=== PATIENT | male | born 1945 | race Caucasian/White ===

== ENCOUNTER → 2018-05-27 12:04 | Outpatient (CLI) | payer OTHER, MEDICARE, SELFPAY ==
--- NOTE | 2018-05-27 | DI.RAD.S_ITS ---
PROCEDURE: XR STERNUM MIN 2V INDICATIONS: STERNAL PAIN TECHNIQUE: 2 views of the sternum acquired. COMPARISON: None. FINDINGS: Bones: No fractures or dislocations. No suspicious bony lesions. Soft tissues: Retrosternal soft tissues appear normal. IMPRESSION: Normal for age, source of current symptoms is not seen. Dictated by: Saturnino Jimenez M.D. on 05/27/2018 at 14:23 Approved by: Saturnino Jimenez M.D. on 05/27/2018 at 14:23
== END ==
PROVIDERS: PCP Family Medicine; Visit Provider Chiropractor
DX: R07.9 Chest pain, unspecified (principal)
CPT/HCPCS: 71120

== ENCOUNTER → 2018-07-28 16:29 | Outpatient (CLI) | payer MEDICARE, SELFPAY ==
[2018-07-28 16:48] LABS: Hematocrit 48.7 % (41-53); Hemoglobin 16.5 g/dL (13.5-17.5); Mean Corpuscular HGB Conc 33.8 % (30-36); Mean Corpuscular Hemoglobin 29.9 PG (26-34); Mean Corpuscular Volume 88.5 fL (80-100); Platelet Count 273 X10^3/uL (150-400); Red Blood Cell Count 5.51 X10^6/uL (4.5-5.9); Red Cell Distribution Width 14.5 % (11.6-14.8); White Blood Cell Count 7.1 X10^3/uL (4.5-11.0)
[2018-07-28 17:37] LABS: Cholesterol 236 mg/dL (140-199); HDL Cholesterol 56 mg/dL (40-60); LDL Cholesterol Calculated 165 mg/dL (<100); Triglycerides 77 mg/dL (35-150)
[2018-07-28 17:54] LABS: Vitamin D 25 Hydroxy (D3) 24.5 ng/mL (30.0-100.0)
[2018-07-28 18:09] LABS: Prostate Specific Antigen Scrn 4.88 ng/mL (0.1-4.0)
[2018-08-04 13:35] LABS: Testosterone Free 21.8
[2018-08-04 13:36] LABS: Testosterone Total 184
== END ==
PROVIDERS: PCP Student in an Organized Health Care Education/Training Program; Visit Provider Student in an Organized Health Care Education/Training Program
DX: E29.1 Testicular hypofunction (principal); E55.9 Vitamin D deficiency, unspecified; E78.2 Mixed hyperlipidemia; R39.15 Urgency of urination; Z12.5 Encounter for screening for malignant neoplasm of prostate
CPT/HCPCS: 36415; 80061; 82306; 84402; 84403; 85027; G0103

== ENCOUNTER → 2018-10-04 07:34 | Outpatient (CLI) | payer MEDICARE, SELFPAY ==
[2018-10-04 09:47] LABS: Prostate Specific Antigen 6.27 ng/mL (0.10-4.00)
== END ==
PROVIDERS: PCP Student in an Organized Health Care Education/Training Program; Visit Provider Student in an Organized Health Care Education/Training Program
DX: R97.20 Elevated prostate specific antigen [PSA] (principal)
CPT/HCPCS: 36415; 84153

== ENCOUNTER → 2018-11-30 07:01 | Outpatient (CLI) | payer MEDICARE, SELFPAY ==
[2018-12-02 15:08] LABS: PSA Free % 14 % (calc) (> 25); PSA, Total 2.9 ng/mL (< 4.1)
[2018-12-04 00:10] LABS: Testosterone Total 301 ng/dL (250-1100)
== END ==
PROVIDERS: PCP Student in an Organized Health Care Education/Training Program; Visit Provider Urology
DX: E29.1 Testicular hypofunction (principal); R97.20 Elevated prostate specific antigen [PSA]
CPT/HCPCS: 36415; 84153; 84154; 84402; 84403

== ENCOUNTER → 2019-03-28 07:23 | Outpatient (CLI) | payer MEDICARE, SELFPAY ==
[2019-03-28 08:42] LABS: Alanine Aminotransferase 18 IU/L (21-72); Albumin Globulin Ratio 1.3 (1.0-2.8); Alkaline Phosphatase 71 U/L (38-126); Aspartate Aminotransferase 22 IU/L (17-59); Bilirubin Total 0.7 mg/dL (0.2-1.3); Bilirubin Unconjugated 0.6 mg/dL (0.0-1.1); Cholesterol 216 mg/dL (140-199); Globulin 3.1 g/dL (1.7-4.1); HDL Cholesterol 39 mg/dL (40-60); HEMOLYSIS < 15 (0-50); LDL Cholesterol Calculated 156 mg/dL (<100); Total Protein 7.1 g/dL (6.3-8.2); Triglycerides 107 mg/dL (35-150)
== END ==
PROVIDERS: PCP Student in an Organized Health Care Education/Training Program; Visit Provider Urology
DX: E29.1 Testicular hypofunction (principal)
CPT/HCPCS: 36415; 80061; 80076

== ENCOUNTER → 2019-08-10 07:00 | Outpatient (CLI) | payer MEDICARE, SELFPAY ==
[2019-08-10 08:27] LABS: Hematocrit 46.9 % (41-53); Hemoglobin 15.9 g/dL (13.5-17.5)
[2019-08-10 08:43] LABS: Alanine Aminotransferase 20 IU/L (<50); Albumin 4.2 g/dL (3.5-5.0); Albumin Globulin Ratio 1.4 (1.0-2.8); Alkaline Phosphatase 78 U/L (38-126); Aspartate Aminotransferase 37 IU/L (17-59); BUN Creatinine Ratio 21.1 (6-22); Bilirubin Total 0.6 mg/dL (0.2-1.3); Blood Urea Nitrogen 19 mg/dL (9-20); Calcium 9.1 mg/dL (8.4-10.2); Carbon Dioxide 29 mmol/L (22-32); Chloride 103 mmol/L (98-107); Estimated Glomerular Filt Rate > 60.0 mL/min (>60); Globulin 3.1 g/dL (1.7-4.1); Glucose 71 mg/dL (80-110); HEMOLYSIS < 15 (0-50); Potassium 3.9 mmol/L (3.4-5.1); Sodium 142 mmol/L (137-145); Total Protein 7.3 g/dL (6.3-8.2)
[2019-08-10 09:08] LABS: Prostate Specific Antigen 8.63 ng/mL (0.10-4.00)
[2019-08-10 09:10] LABS: Testosterone 135 ng/dL (71.8-623)
== END ==
PROVIDERS: PCP Family Medicine; Visit Provider Urology
DX: E29.1 Testicular hypofunction (principal); R97.20 Elevated prostate specific antigen [PSA]
CPT/HCPCS: 36415; 80053; 84153; 84403; 85014; 85018

== ENCOUNTER → 2019-09-20 10:24 | Outpatient (CLI) | payer MEDICARE, SELFPAY ==
--- NOTE | 2019-09-20 12:16 | DI.CT.S_ITS ---
PROCEDURE: CT CHEST ABD PEL W CON INDICATIONS: PROSTATE CANCER TECHNIQUE: After the administration of oral and intravenous contrast, 5 mm thick sections acquired from the lung apices to the symphysis. 5 mm coronal and sagittal reformats were performed, with additional 7 mm coronal MIP reformats through the lungs. For radiation dose reduction, the following was used: automated exposure control, adjustment of mA and/or kV according to patient size. COMPARISON: None. FINDINGS: Image quality: Excellent. CHEST: Lungs and pleura: No acute airspace opacities. No pleural effusions or pneumothorax. Central and peripheral airways appear patent and normal in caliber. Mediastinum: Heart size is normal. No pericardial effusion. No mediastinal or hilar adenopathy by size criteria. Thoracic aorta and central pulmonary arteries are normal in size. Esophagus is normal in caliber. No hiatal hernia. Chest wall: No axillary or supraclavicular adenopathy by size criteria. Thyroid gland appears normal. ABDOMEN: Solid organs: Liver is normal in size and enhancement. Gallbladder appears normal except for presence of a 1.5 cm gallstone mobile within the gallbladder lumen. Biliary system is non dilated. Pancreas enhances normally. Spleen is normal in size and enhancement. No adrenal nodules. Kidneys demonstrate normal size and enhancement, without hydronephrosis. Peritoneum and bowel: Bowel loops demonstrate normal wall thickness and caliber. No free fluid or air. Nodes and vessels: No retroperitoneal or mesenteric adenopathy by size criteria. Aorta and inferior vena cava are normal in size. Miscellaneous: No ventral hernias. PELVIS: Genitourinary: Bladder wall thickness is normal. The prostate gland appears free of mass lesion extending from the gland margins into adjacent structures. Miscellaneous: No inguinal hernias or adenopathy. Bones: No suspicious bony lesions. No vertebral body compression fractures. IMPRESSION: Normal examination, no evidence of metastatic disease related to clinically reported prostate carcinoma. The prostate gland visualized appears normal by CT criteria. Dictated by: Saturnino Jimenez M.D. on 09/20/2019 at 15:12 Approved by: Saturnino Jimenez M.D. on 09/20/2019 at 15:15
== END ==
PROVIDERS: PCP Family Medicine; Referring Provider Urology; Visit Provider Urology
DX: C61 Malignant neoplasm of prostate (principal); K80.20 Calculus of gallbladder without cholecystitis without obstruction
CPT/HCPCS: 71260; 74177; Q9967

== ENCOUNTER → 2020-01-30 11:35 | Outpatient (CLI) | payer MEDICARE, SELFPAY ==
[2020-01-30 13:23] LABS: Prostate Specific Antigen < 0.064 ng/mL (0.10-4.00)
== END ==
PROVIDERS: PCP Family Medicine; Referring Provider Nurse Practitioner Family; Visit Provider Nurse Practitioner Family
DX: C61 Malignant neoplasm of prostate (principal)
CPT/HCPCS: 36415; 84153

== ENCOUNTER → 2020-07-04 10:52 | Outpatient (CLI) | payer MEDICARE, SELFPAY ==
[2020-07-05 06:36] LABS: PSA Ultrasensitive 0.027 ng/mL (0.000-4.000)
== END ==
PROVIDERS: PCP Family Medicine; Referring Provider Nurse Practitioner Family; Visit Provider Nurse Practitioner Family
DX: C61 Malignant neoplasm of prostate (principal)
CPT/HCPCS: 36415; 84153

== ENCOUNTER → 2020-11-12 11:20 | Outpatient (CLI) | payer MEDICARE, SELFPAY ==
[2020-11-12 13:49] LABS: Prostate Specific Antigen 0.306 ng/mL (0.10-4.00)
== END ==
PROVIDERS: PCP Family Medicine; Referring Provider Nurse Practitioner Family; Visit Provider Nurse Practitioner Family
DX: C61 Malignant neoplasm of prostate (principal)
CPT/HCPCS: 36415; 84153

== ENCOUNTER → 2021-04-17 10:04 | Outpatient (CLI) | payer MEDICARE, SELFPAY ==
[2021-04-18 06:11] LABS: PSA Ultrasensitive 0.026 ng/mL (0.000-4.000)
== END ==
PROVIDERS: PCP Family Medicine; Referring Provider Urology; Visit Provider Urology
DX: C61 Malignant neoplasm of prostate (principal)
CPT/HCPCS: 36415; 84153

== ENCOUNTER → 2021-09-10 07:32 | Outpatient (CLI) | payer MEDICARE, SELFPAY ==
[2021-09-10 10:31] LABS: Prostate Specific Antigen 0.092 ng/mL (0.10-4.00)
== END ==
PROVIDERS: PCP Family Medicine; Referring Provider Urology; Visit Provider Urology
DX: C61 Malignant neoplasm of prostate (principal)
CPT/HCPCS: 36415; 84153

== ENCOUNTER → 2021-10-11 07:05 | Outpatient (CLI) | payer MEDICARE, SELFPAY ==
[2021-10-11 08:30] LABS: Prostate Specific Antigen 0.107 ng/mL (0.10-4.00)
== END ==
PROVIDERS: Urology; PCP Family Medicine; Referring Provider Family Medicine; Visit Provider Family Medicine
DX: C61 Malignant neoplasm of prostate (principal)
CPT/HCPCS: 36415; 84153

== ENCOUNTER → 2022-01-02 06:56 | Outpatient (CLI) | payer MEDICARE, SELFPAY ==
[2022-01-03 05:15] LABS: Prostate Specific Antigen 0.092 ng/mL (0.10-4.00)
== END ==
PROVIDERS: PCP Family Medicine; Referring Provider Urology; Visit Provider Urology
DX: C61 Malignant neoplasm of prostate (principal)
CPT/HCPCS: 36415; 84153

== ENCOUNTER → 2022-04-28 07:05 | Outpatient (CLI) | payer MEDICARE, SELFPAY ==
[2022-04-28 09:33] LABS: Prostate Specific Antigen 0.083 ng/mL (0.10-4.00)
== END ==
PROVIDERS: PCP Family Medicine; Referring Provider Urology; Visit Provider Urology
DX: C61 Malignant neoplasm of prostate (principal)
CPT/HCPCS: 36415; 84153

== ENCOUNTER → 2022-07-08 06:41 | Outpatient (CLI) | payer MEDICARE, SELFPAY ==
[2022-07-08 08:27] LABS: Prostate Specific Antigen 0.088 ng/mL (0.10-4.00)
== END ==
PROVIDERS: PCP Family Medicine; Referring Provider Urology; Visit Provider Urology
DX: C61 Malignant neoplasm of prostate (principal)
CPT/HCPCS: 36415; 84153

== ENCOUNTER → 2022-10-27 06:52 | Outpatient (CLI) | payer MEDICARE, SELFPAY | PROVIDERS: PCP Family Medicine; Referring Provider Urology; Visit Provider Urology | DX: C61 Malignant neoplasm of prostate (principal) | CPT/HCPCS: 36415; 84153 ==

== ENCOUNTER → 2023-01-08 10:35 | Outpatient (CLI) | payer MEDICARE, SELFPAY ==
--- NOTE | 2023-01-08 10:37 | DI.RAD.S_ITS ---
PROCEDURE: XR HIP W PEL IF DONE VENANCIO MIN 4V INDICATIONS: Bilateral hip pain TECHNIQUE: AP pelvis with lateral view(s) of the right and left hip(s). COMPARISON: None. FINDINGS: Bones: No fractures or dislocations. Pelvic ring appears intact. No suspicious bony lesions. Mild-moderate hip joint space narrowing present bilaterally. Soft tissues: The visualized bowel gas pattern is normal. No suspicious soft tissue calcifications. IMPRESSION: No acute osseous abnormality. 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 If symptoms persist, follow-up radiographs and/or CT or MRI may be helpful for further evaluation. Dictated by: Angel Bettencourt M.D. on 01/08/2023 at 16:35 Approved by: Angel Bettencourt M.D. on 01/08/2023 at 16:37
== END ==
PROVIDERS: PCP Family Medicine; Referring Provider Family Medicine; Visit Provider Family Medicine
DX: M25.551 Pain in right hip (principal); M25.552 Pain in left hip
CPT/HCPCS: 73522

== ENCOUNTER → 2023-03-26 06:31 | Outpatient (CLI) | payer MEDICARE, SELFPAY ==
[2023-03-26 10:16] LABS: Testosterone 285 ng/dL (71.8-623)
[2023-03-27 07:09] LABS: PSA Ultrasensitive 0.078 ng/mL (0.000-4.000)
== END ==
PROVIDERS: PCP Family Medicine; Referring Provider Urology; Visit Provider Urology
DX: C61 Malignant neoplasm of prostate (principal)
CPT/HCPCS: 36415; 84153; 84403

== ENCOUNTER → 2023-06-23 06:52 | Outpatient (CLI) | payer MEDICARE, SELFPAY ==
[2023-06-23 09:21] LABS: Prostate Specific Antigen 0.142 ng/mL (0.10-4.00)
[2023-06-23 09:23] LABS: Testosterone 535 ng/dL (71.8-623)
== END ==
PROVIDERS: PCP Family Medicine; Referring Provider Urology; Visit Provider Urology
DX: C61 Malignant neoplasm of prostate (principal)
CPT/HCPCS: 36415; 84153; 84403

== ENCOUNTER → 2023-08-27 08:59 | Outpatient (CLI) | payer MEDICARE, SELFPAY ==
[2023-08-27 10:37] LABS: Prostate Specific Antigen 0.133 ng/mL (0.10-4.00)
== END ==
LOC: LAB 09:00
PROVIDERS: PCP Family Medicine; Referring Provider Urology; Visit Provider Urology
DX: C61 Malignant neoplasm of prostate (principal)
CPT/HCPCS: 36415; 84153

== ENCOUNTER → 2023-11-16 06:32 | Outpatient (CLI) | payer MEDICARE, SELFPAY | PROVIDERS: PCP Family Medicine; Referring Provider Urology; Visit Provider Urology | DX: C61 Malignant neoplasm of prostate (principal) | CPT/HCPCS: 36415; 84153; 86900; 86901 ==

== ENCOUNTER → 2024-02-08 10:17 | Outpatient (CLI) | payer MEDICARE, SELFPAY ==
[2024-02-08 11:36] LABS: Prostate Specific Antigen 0.194 ng/mL (0.10-4.00)
[2024-02-08 11:39] LABS: Testosterone 296 ng/dL (71.8-623)
== END ==
PROVIDERS: PCP Family Medicine; Referring Provider Urology; Visit Provider Urology
DX: C61 Malignant neoplasm of prostate (principal)
CPT/HCPCS: 36415; 84153; 84403

== ENCOUNTER → 2024-03-22 13:10 | Outpatient (CLI) | payer MEDICARE, SELFPAY ==
[2024-03-22 14:25] LABS: Add Manual Diff / Slide Review NO; Basophils Absolute Auto 0 /uL (0-100); Basophils Percent Auto 0.5 % (0-2); Eosinophils Absolute Auto 100 /uL (0-450); Eosinophils Percent Auto 1.4 % (2-4); Hematocrit 44.7 % (41-53); Hemoglobin 15.1 g/dL (13.5-17.5); Lymphocytes Absolute Auto 1600 /uL (1100-4500); Lymphocytes Percent Auto 24.2 % (25-40); Mean Corpuscular HGB Conc 33.7 % (30-36); Mean Corpuscular Hemoglobin 29.9 PG (26-34); Mean Corpuscular Volume 88.8 fL (80-100); Monocytes Absolute Auto 600 /uL (0-900); Monocytes Percent Auto 9.7 % (3-14); Neutrophils Absolute Auto 4100 /uL (1500-7000); Neutrophils Percent Auto 64.2 % (50-75); Platelet Count 256 X10^3/uL (150-400); Red Blood Cell Count 5.04 X10^6/uL (4.5-5.9); Red Cell Distribution Width 14.9 % (11.6-14.8); White Blood Cell Count 6.4 X10^3/uL (4.5-11.0)
[2024-03-22 14:39] LABS: Alanine Aminotransferase 18 IU/L (<50); Albumin 4.2 g/dL (3.5-5.0); Albumin Globulin Ratio 1.4 (1.0-2.8); Alkaline Phosphatase 66 U/L (38-126); Aspartate Aminotransferase 27 IU/L (17-59); BUN Creatinine Ratio 20.7 (6-22); Bilirubin Total 0.7 mg/dL (0.2-1.3); Blood Urea Nitrogen 18 mg/dL (9-20); Calcium 9.2 mg/dL (8.4-10.2); Carbon Dioxide 24 mmol/L (22-32); Chloride 107 mmol/L (98-107); Cholesterol 267 mg/dL (140-199); Estimated Glomerular Filt Rate > 60 mL/min (>60); Globulin 2.9 g/dL (1.7-4.1); Glucose 93 mg/dL (80-110); HDL Cholesterol 45 mg/dL (40-60); HEMOLYSIS < 15 (0-50); LDL Cholesterol Calculated 205 mg/dL (<100); Potassium 4.1 mmol/L (3.4-5.1); Sodium 138 mmol/L (137-145); Total Protein 7.1 g/dL (6.3-8.2); Triglycerides 85 mg/dL (35-150)
[2024-03-22 15:25] LABS: TSH w/ Reflex to FT4 2.27 uIU/mL (0.47-4.68)
[2024-03-22 17:19] LABS: Vitamin D 25 Hydroxy (D3) 21.9 ng/mL (30.0-100.0)
== END ==
PROVIDERS: PCP Family Medicine; Referring Provider Family Medicine; Visit Provider Family Medicine
DX: E56.9 Vitamin deficiency, unspecified (principal); E78.5 Hyperlipidemia, unspecified; G47.19 Other hypersomnia; R53.82 Chronic fatigue, unspecified
CPT/HCPCS: 36415; 80053; 80061; 82306; 84443; 85025

== ENCOUNTER → 2024-05-23 09:58 | Outpatient (CLI) | payer MEDICARE, SELFPAY ==
[2024-05-23 11:22] LABS: Prostate Specific Antigen 0.227 ng/mL (0.10-4.00)
== END ==
PROVIDERS: PCP Family Medicine; Referring Provider Urology; Visit Provider Urology
DX: C61 Malignant neoplasm of prostate (principal)
CPT/HCPCS: 36415; 84153

== ENCOUNTER → 2024-06-29 10:18 | Outpatient (CLI) | payer MEDICARE, SELFPAY ==
[2024-06-29 11:19] LABS: Cholesterol 267 mg/dL (140-199); HDL Cholesterol 42 mg/dL (40-60); LDL Cholesterol Calculated 204 mg/dL (<100); Triglycerides 104 mg/dL (35-150)
== END ==
PROVIDERS: PCP Family Medicine; Referring Provider Family Medicine; Visit Provider Family Medicine
DX: E78.5 Hyperlipidemia, unspecified (principal)
CPT/HCPCS: 36415; 80061

== ENCOUNTER → 2024-09-20 12:37 | Outpatient (CLI) | payer MEDICARE, SELFPAY ==
[2024-09-20 13:56] LABS: Prostate Specific Antigen 0.296 ng/mL (0.10-4.00)
== END ==
PROVIDERS: PCP Family Medicine; Referring Provider Urology; Visit Provider Urology
DX: C61 Malignant neoplasm of prostate (principal); R97.21 Rising PSA following treatment for malignant neoplasm of prostate
CPT/HCPCS: 36415; 84153

== ENCOUNTER → 2024-09-29 10:27 | Outpatient (CLI) | payer MEDICARE, SELFPAY ==
--- NOTE | 2024-09-29 10:30 | DI.NM.S_ITS ---
PROCEDURE: NM BONE SCAN WHOLE BODY RADIOPHARMACEUTICAL: 21.7 mCi Tc-99m MDP IV. INDICATIONS: 78 y/o M w/ prostate cancer, eval for mets TECHNIQUE: Delayed whole-body scintigrams were obtained approximately 3-4 hours after intravenous injection of radiotracer. Anterior and posterior views were acquired from vertex to feet. Additional left and right oblique views of the pelvis were obtained. COMPARISON: [facility], CT, CT CHEST ABD PEL W CON, 09/29/2024, 11:45 FINDINGS: Normal radiotracer excretion is seen in the urinary system. Upper and lower extremity degenerative changes. Mild spinal degenerative changes also present. There is mild focal uptake in the right mid sternum and left mid cervical spine, indeterminate. Mild tram track appearance periosteal uptake in the bilateral lower extremities. IMPRESSION: Mild nonspecific uptake in the right mid sternum and left mid cervical spine. Attention on follow-up is suggested. No highly suspicious focus of tracer uptake identified. Mild periosteal uptake in the bilateral lower extremities, possibly hypertrophic osteoarthropathy in the setting of lung mass seen on CT Dictated by: Dann Long M.D. on 09/29/2024 at 15:38 Approved by: Dann Long M.D. on 09/29/2024 at 15:43
--- NOTE | 2024-09-29 11:08 | DI.CT.S_ITS ---
PROCEDURE: CT CHEST ABD PEL W CON INDICATIONS: 78 y/o M w/ prostate cancer, eval for mets TECHNIQUE: After the administration of intravenous contrast, 5 mm thick sections acquired from the lung apices to the symphysis. 5 mm coronal and sagittal reformats were performed, with additional 7 mm MIP reformats through the lungs. For radiation dose reduction, the following was used: automated exposure control, adjustment of mA and/or kV according to patient size. COMPARISON: [facility], CT, CT CHEST ABD PEL W CON, 09/20/2019, 11:30. FINDINGS: Image quality: Excellent. CHEST: Lower Neck: No enlarged lymph nodes. Thyroid: No thyroid nodules which require sonographic follow up, per consensus guidelines. Axillae: No enlarged lymph nodes. Chest Wall: Unremarkable. Lungs and Pleura: There is a heterogeneously enhancing right lower lobe mass measuring 8.3 x 11.0 x 11.0 cm. Minimal right effusion. Heart: Heart size is normal. No pericardial effusion. Thoracic Vessels: The aorta and pulmonary arteries demonstrate normal size. Mediastinum and Natalie: No enlarged lymph nodes. Esophagus: No wall thickening. Mild hiatal hernia. ABDOMEN: Liver: Low-attenuation foci are present. The larger foci are consistent with simple cyst. The smaller foci are too small to definitively characterize. Gallbladder: Luminal stone without wall thickening. Biliary ducts: No biliary dilation. Pancreas: No ductal dilation. Spleen: Size is within normal limits. Adrenal Glands: No adrenal nodules. Kidneys and Ureters: No hydronephrosis. No solid mass. No complex renal cystic lesion which requires follow up. Stomach and Bowel: Normal colonic caliber, without significant wall thickening. Diverticula without inflammatory change. Peritoneum: No abnormal intraperitoneal fluid. No free air. Ventral Wall: No significant ventral hernia. Abdominal Nodes: No retroperitoneal or mesenteric adenopathy by size criteria. Vessels: Aorta and inferior vena cava are normal in size. PELVIS: Pelvic Organs: Prostate gland is not visualized. Bladder: No bladder wall thickening, accounting for underdistention. Pelvic Nodes: No enlarged lymph nodes. Miscellaneous: No inguinal hernias are seen. Bones: No aggressive osseous abnormality. Unchanged punctate sclerosis within the right 4th rib. IMPRESSION: Interval development heterogeneously enhancing right lower lobe pulmonary mass highly concerning for malignancy. Low-attenuation foci within the liver too small to definitively characterize. These could statistically represent cysts. However, given history of malignancy, other etiology cannot be excluded and interval attention to these lesions follow-up imaging is recommended. Diverticulosis. Dictated by: Ayla Lopez M.D. on 09/29/2024 at 12:43 Approved by: Ayla Lopez M.D. on 09/29/2024 at 12:50
[2024-09-29 11:32] LABS: Estimated Glomerular Filt Rate > 60 mL/min (>60)
== END ==
PROVIDERS: PCP Family Medicine; Referring Provider Family Medicine; Visit Provider Urology
DX: C61 Malignant neoplasm of prostate (principal); R97.21 Rising PSA following treatment for malignant neoplasm of prostate; R91.8 Other nonspecific abnormal finding of lung field; K44.9 Diaphragmatic hernia without obstruction or gangrene; K57.90 Diverticulosis of intestine, part unspecified, without perforation or abscess without bleeding
CPT/HCPCS: 36415; 71260; 74177; 78306; 82565; A9503; Q9967

== ENCOUNTER → 2024-10-26 07:41 | Outpatient (CLI) | payer MEDICARE, SELFPAY ==
[2024-10-26 08:43] LABS: Add Manual Diff / Slide Review NO; Basophils Absolute Auto 100 /uL (0-100); Basophils Percent Auto 0.6 % (0-2); Eosinophils Absolute Auto 100 /uL (0-450); Eosinophils Percent Auto 1.3 % (2-4); Hematocrit 43.4 % (41-53); Hemoglobin 14.4 g/dL (13.5-17.5); Lymphocytes Absolute Auto 1500 /uL (1100-4500); Lymphocytes Percent Auto 16.9 % (25-40); Mean Corpuscular HGB Conc 33.1 % (30-36); Mean Corpuscular Hemoglobin 28.4 PG (26-34); Mean Corpuscular Volume 85.8 fL (80-100); Monocytes Absolute Auto 1000 /uL (0-900); Monocytes Percent Auto 11.3 % (3-14); Neutrophils Absolute Auto 6100 /uL (1500-7000); Neutrophils Percent Auto 69.9 % (50-75); Platelet Count 415 X10^3/uL (150-400); Red Blood Cell Count 5.06 X10^6/uL (4.5-5.9); Red Cell Distribution Width 15.2 % (11.6-14.8); White Blood Cell Count 8.8 X10^3/uL (4.5-11.0)
[2024-10-26 09:13] LABS: Alanine Aminotransferase 17 IU/L (<50); Albumin 4.1 g/dL (3.5-5.0); Albumin Globulin Ratio 1.3 (1.0-2.8); Alkaline Phosphatase 126 U/L (38-126); Aspartate Aminotransferase 20 IU/L (17-59); BUN Creatinine Ratio 23.3 (6-22); Bilirubin Total 0.8 mg/dL (0.2-1.3); Blood Urea Nitrogen 17 mg/dL (9-20); Calcium 9.4 mg/dL (8.4-10.2); Carbon Dioxide 24 mmol/L (22-32); Chloride 104 mmol/L (98-107); Estimated Glomerular Filt Rate > 60 mL/min (>60); Globulin 3.2 g/dL (1.7-4.1); Glucose 94 mg/dL (80-110); HEMOLYSIS < 15 (0-50); Potassium 4.7 mmol/L (3.4-5.1); Sodium 138 mmol/L (137-145); Total Protein 7.3 g/dL (6.3-8.2)
[2024-10-26 09:33] LABS: Free T4, Direct Thyroxine 1.27 ng/dL (0.78-2.19)
[2024-10-26 09:46] LABS: Thyroid Stimulating Hormone 3.15 uIU/mL (0.47-4.68)
== END ==
PROVIDERS: PCP Family Medicine; Referring Provider Family Medicine; Visit Provider Family Medicine
DX: M25.461 Effusion, right knee (principal); M25.462 Effusion, left knee; M25.471 Effusion, right ankle; M25.474 Effusion, right foot; M25.472 Effusion, left ankle; M25.475 Effusion, left foot
CPT/HCPCS: 36415; 80053; 84439; 84443; 84481; 85025; 86038

== ENCOUNTER → 2025-06-05 08:32 | Outpatient (CLI) | payer MEDICARE, SELFPAY ==
[2025-06-05 10:26] LABS: Add Manual Diff / Slide Review NO; Hematocrit 44.4 % (41-53); Hemoglobin 14.9 g/dL (13.5-17.5); Lymphocytes Absolute Auto 1700 /uL (1100-4500); Mean Corpuscular HGB Conc 33.6 % (30-36); Mean Corpuscular Hemoglobin 28.3 PG (26-34); Mean Corpuscular Volume 84.1 fL (80-100); Platelet Count 275 X10^3/uL (150-400)
[2025-06-05 10:58] LABS: Alanine Aminotransferase 15 IU/L (<50); Albumin 4.0 g/dL (3.5-5.0); Albumin Globulin Ratio 1.3 (1.0-2.8); Alkaline Phosphatase 76 U/L (38-126); Blood Urea Nitrogen 20 mg/dL (9-20); Calcium 9.1 mg/dL (8.4-10.2); Carbon Dioxide 24 mmol/L (22-32); Chloride 108 mmol/L (98-107); Cholesterol 258 mg/dL (140-199); Estimated Glomerular Filt Rate > 60 mL/min (>60); Globulin 3.0 g/dL (1.7-4.1); Glucose 94 mg/dL (70-99); HDL Cholesterol 52 mg/dL (40-60); HEMOLYSIS < 15 (0-50); Potassium 4.1 mmol/L (3.4-5.1); Sodium 139 mmol/L (137-145); Total Protein 7.0 g/dL (6.3-8.2); Triglycerides 92 mg/dL (35-150)
[2025-06-05 11:26] LABS: Prostate Specific Antigen 0.770 ng/mL (0.10-4.00)
== END ==
PROVIDERS: PCP Family Medicine; Referring Provider Family Medicine; Visit Provider Family Medicine
DX: E78.5 Hyperlipidemia, unspecified (principal); C61 Malignant neoplasm of prostate; R53.81 Other malaise
CPT/HCPCS: 36415; 80053; 80061; 84153; 85025

== ENCOUNTER → 2025-06-12 08:39 | Outpatient (CLI) | payer MEDICARE, SELFPAY ==
[2025-06-12 09:21] LABS: Appearance Urine UA CLEAR; Bilirubin Urine UA NEGATIVE (NEGATIVE); Color Urine UA YELLOW; Glucose Urine UA NEGATIVE (Negative); Ketones Urine UA NEGATIVE (NEGATIVE); Leukocyte Esterase Urine UA 2+ (NEGATIVE); Nitrite Urine UA POSITIVE (Negative); Occult Blood Urine UA 3+ (Negative); Protein Urine UA TRACE (Negative); Specific Gravity Urine UA 1.025 (1.000-1.035); Urobilinogen Urine UA 0.2 E.U./dL (0.2); pH Urine UA 5.5 (4.5-8.0)
[2025-06-12 09:24] LABS: Culture Indicated Urine Specimen Cultured
== END ==
PROVIDERS: PCP Family Medicine; Visit Provider Family Medicine
DX: N39.0 Urinary tract infection, site not specified (principal); R31.9 Hematuria, unspecified; R30.0 Dysuria
CPT/HCPCS: 81001; 87077; 87086